=== PATIENT | female | born 1970 | race Hispanic/Latino ===

== ENCOUNTER 2022-11-27 09:09 | Outpatient (CLI) | payer BC, SELFPAY ==
--- NOTE | ~2022-11-27 | MM_ITS ---
EXAMINATION: MM screening [facility] BI w mauri HISTORY: Screening mammogram TECHNIQUE: Craniocaudal and mediolateral oblique 3-D tomosynthesis images were obtained and synthetic 2-D images were generated. CAD analysis was submitted and interpreted. COMPARISON: 10/27/2019 diagnostic left mammogram 09/20/2019, 04/18/2018, 08/22/2015 bilateral screening mammogram examinations BREAST PARENCHYMAL COMPOSITION: There are scattered areas of fibroglandular density. FINDINGS: Right breast: There is no evidence of suspicious mass, calcification, or architectural dist ortion to suggest malignancy in the right breast. There has been no suspicious interval change. Left breast: Asymmetry and possible architectural distortion in the outer mid left breast. Diagnostic left mammogram and left breast ultrasound examination are recommended IMPRESSION: 1. Asymmetry and possible architectural distortion, mid left breast 2. Diagnostic left mammogram and left breast ultrasound examination are recommended BI-RADS Category 0: Incomplete: Needs additional imaging evaluation. Reviewed, dictated and finalized at location A. MACHINE OPERATOR IMPRESSION: 1. Asymmetry and possible architectural distortion, mid left breast 2. Diagnostic left mammogram and left breast ultrasound examination are recomme nded BI-RADS Category 0: Incomplete: Needs additional imaging evaluation.
== END 2022-11-27 09:10 | disposition home or self-care (01) ==
PROVIDERS: Visit Provider Physician Assistant
DX: Z12.31 Encounter for screening mammogram for malignant neoplasm of breast (principal); N64.89 Other specified disorders of breast
CPT/HCPCS: 77063; 77067

== ENCOUNTER 2022-12-18 11:12 | Outpatient (CLI) | payer BC, SELFPAY ==
--- NOTE | ~2022-12-18 | MMUS_ITS ---
EXAMINATION: MM diagnostic [facility] LT w mauri, US breast LT limited HISTORY: Left breast asymmetry and possible architectural distortion on screening mammogram TECHNIQUE: Additional 3-D tomosynthesis images of the left breast were performed and synthetic 2-D im ages were generated. CAD analysis was submitted and interpreted. High resolution limited left breast ultrasound was performed. COMPARISON: Prior mammograms dating back to 04/18/2018 FINDINGS: MAMMOGRAPHIC FINDINGS: There is a return to baseline fibroglandular appearance with spot compression of the left breast in t he area questioned on screening mammogram. ULTRASOUND: There is no evidence of focal abnormal solid or cystic mass in the vicinity of the mammographic findi ng in question. IMPRESSION: 1. No mammographic or sonographic evidence of malignancy. 2. Recommend routine screening mammography in one year. BI-RADS Category 1: Negative Reviewed, dictated and finalized at location A. 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 No mammographic or sonographic evidence of malignancy. 2. Recommend routine screening mammography in one year. BI-RADS Category 1: Negative
== END 2022-12-18 11:13 | disposition home or self-care (01) ==
LOC: ANHIMG 11:14
PROVIDERS: Visit Provider Physician Assistant
DX: R92.8 Other abnormal and inconclusive findings on diagnostic imaging of breast (principal)
CPT/HCPCS: 76642; 77061; 77065; G0279

== ENCOUNTER 2024-06-29 01:26 | Day surgery (SDC) | payer BC, SELFPAY ==
[2024-06-23 13:55] VITALS: BMI 30.6
[2024-06-29 07:26] VITALS: BP 133/89; PULSE 88; RESP 16; TEMP 36.1; O2SAT 98; BMI 27.4
[2024-06-29] MEDS: LACTATED RINGERS 1,000 ML 150 ML IV CONT (07:41)
--- NOTE | 2024-06-29 07:42 | WPDANESEPPF ---
Anes - Initial Pre Proc Eval Procedure: Operation Date: 06/29/24 08:30 Proposed Procedures p Esophagogastroduodenoscopy&Screen Colon - Dennys Simmons MD Date/Time: 06/29/24 07:42 Surgeon: Dennys Simmons MD Pre Op Diagnosis: GERD, Cough,Neoplasm screening Patient Data Age: 53 Gender: F Height: 1.57 m Weight: 68.1 kg Last Vital Signs Temp 97.0 F L 06/29/24 07:26 Pulse 88 06/29/24 07:26 Resp 16 06/29/24 07:26 BP 133/89 06/29/24 07:26 Pulse Ox 98 06/29/24 07:26 O2 Del Method Room Air 06/29/24 07:26 Allergies Allergy/AdvReac Type Severity Reaction Status Date / Time No Known Allergies Allergy Unknown Verified 06/29/24 07:25 Home Medications Medication Instructions Recorded Confirmed Type omeprazole 40 mg capsule,delayed 40 mg PO DAILY #30 caps 06/09/24 06/29/24 Rx release Patient hx anesthesia problems: none Family hx anesthesia problems: none Results Review: All pre-operative results and documents have been reviewed as part of the pre-operative evaluation. [facility] Social History Social History Smoking status: Never smoker Alcohol intake: never Substance use: never Substance use type: does not use Living arrangements: with family Spiritual care concerns: No Anes - Eval Final PreProcedure Day of Procedure 06/29/24 07:42 Patient weight: overweight Heart: regular rate and rhythm Lungs: clear to auscultation Airway: Mallampati scale Neurological: alert and oriented Last oral intake: >/= 8 hours ASA classification: I Emergent: no Anesthetic plan: delay Anesthesia type and monitoring: general and standard monitoring Results Review: All pre-operative results and documents have been reviewed as part of the pre-operative evaluation. GERD, hx of dry cough. Informed Consent: The patient's anesthetic plan and its attendant risks and benefits were discussed with the patient/family/POA. Questions were solicited and answers provided to the satisfaction of the patient/family/POA.
--- NOTE | 2024-06-29 08:24 | WPDHPUPDATE1 ---
History and Physical Update Update Date/Time: 06/29/24 08:24 History and Physical has been reviewed, including an updated exam of the patient. There are NO changes in the patient's condition. Risks, benefits, and alternatives have been discussed and questions answered. Patient agrees to proceed with procedure.
--- NOTE | 2024-06-29 08:39 | SUR.OPER ---
egd start 830 end 833 colonoscopy start 838
[2024-06-29 08:52] VITALS: BP 90/56; PULSE 78; RESP 18; O2SAT 98
[2024-06-29 09:02] VITALS: BP 96/54; PULSE 76; RESP 20; O2SAT 100
[2024-06-29 09:12] VITALS: BP 91/62; PULSE 69; RESP 16; O2SAT 100
[2024-06-29 09:15] VITALS: BP 106/63; PULSE 62; RESP 14; O2SAT 100
[2024-06-29 09:16] VITALS: BP 108/64; PULSE 61; RESP 14; O2SAT 100
== END 2024-06-29 09:25 | disposition home or self-care (01) ==
PROVIDERS: PCP Physician Assistant; Referring Provider Nurse Practitioner; Visit Provider Internal Medicine Gastroenterology
PROC: 0DJ08ZZ Inspection of Upper Intestinal Tract, Via Natural or Artificial Opening Endoscopic (ICD-10-PCS; CPT 43235; principal; 2024-06-29 08:30)
DX: Z12.11 Encounter for screening for malignant neoplasm of colon (principal); K21.9 Gastro-esophageal reflux disease without esophagitis; F32.A Depression, unspecified; R73.03 Prediabetes; Z98.890 Other specified postprocedural states; Z90.49 Acquired absence of other specified parts of digestive tract
CPT/HCPCS: 43239; 45378; 88305; J2704; J7120